=== PATIENT | male | born 1965 | race Caucasian/White ===

== ENCOUNTER → 2018-02-03 | Outpatient (CLI) | payer MEDICARE, OTHER ==
[~2018-02-03] MED LIST: ADDERALL 10 MG10 MG PO; ATENOLOL 50MG T50 M1 PO; COUMADIN 4 MG TA4 M1 PO; HYDROCODON-ACE1 EAC5 PO; MEDROLDOSEPACK PO; NEURONTIN600 MG PO; NORCO 10-325 T1 EACH PO; PAXIL40 MG PO; PERCOCET 10-321 EACH PO; PROAIR HFA8.5 GM IH; SINGULAIR 10 MG10 MG PO; TRAZODONE HCL50 MG PO; XANAX1 MG PO
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
== END ==
LOC: M.PC 02-02 08:40
DX: I25.10 Atherosclerotic heart disease of native coronary artery without angina pectoris (principal); J98.4 Other disorders of lung; G89.29 Other chronic pain; M19.90 Unspecified osteoarthritis, unspecified site; F43.9 Reaction to severe stress, unspecified; J45.909 Unspecified asthma, uncomplicated

== ENCOUNTER → 2018-04-28 | Outpatient (CLI) | payer MEDICARE, OTHER ==
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
== END ==
LOC: M.PC 00:08
DX: M54.5 Low back pain (principal); I25.10 Atherosclerotic heart disease of native coronary artery without angina pectoris; G89.29 Other chronic pain; M54.2 Cervicalgia; M47.896 Other spondylosis, lumbar region; J45.909 Unspecified asthma, uncomplicated; J98.4 Other disorders of lung; M19.90 Unspecified osteoarthritis, unspecified site; F43.10 Post-traumatic stress disorder, unspecified; Z95.0 Presence of cardiac pacemaker; R07.9 Chest pain, unspecified; Z95.2 Presence of prosthetic heart valve

== ENCOUNTER → 2018-07-21 | Outpatient (CLI) | payer MEDICARE, OTHER ==
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
== END ==
LOC: M.PC 04:45
DX: M54.5 Low back pain (principal); M54.2 Cervicalgia; I25.10 Atherosclerotic heart disease of native coronary artery without angina pectoris; J45.909 Unspecified asthma, uncomplicated; M19.90 Unspecified osteoarthritis, unspecified site; J98.4 Other disorders of lung; Z95.0 Presence of cardiac pacemaker; Z79.899 Other long term (current) drug therapy

== ENCOUNTER → 2018-10-13 | Outpatient (CLI) | payer MEDICARE, OTHER ==
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
== END ==
LOC: M.PC 04:36
DX: S32.2XXD Fracture of coccyx, subsequent encounter for fracture with routine healing (principal); M54.5 Low back pain; R07.9 Chest pain, unspecified; M54.2 Cervicalgia; G89.29 Other chronic pain; J45.909 Unspecified asthma, uncomplicated; M19.90 Unspecified osteoarthritis, unspecified site; I25.10 Atherosclerotic heart disease of native coronary artery without angina pectoris; J98.4 Other disorders of lung; F43.10 Post-traumatic stress disorder, unspecified; X58.XXXD Exposure to other specified factors, subsequent encounter; Z95.0 Presence of cardiac pacemaker; Z79.899 Other long term (current) drug therapy; Z95.4 Presence of other heart-valve replacement

== ENCOUNTER → 2019-01-05 | Outpatient (CLI) | payer MEDICARE, OTHER ==
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
== END ==
LOC: M.PC 08:00
DX: M54.5 Low back pain (principal); G89.29 Other chronic pain; J45.909 Unspecified asthma, uncomplicated; J98.4 Other disorders of lung; I25.10 Atherosclerotic heart disease of native coronary artery without angina pectoris; M19.90 Unspecified osteoarthritis, unspecified site; F43.10 Post-traumatic stress disorder, unspecified; W19.XXXA Unspecified fall, initial encounter; Z95.4 Presence of other heart-valve replacement; Z79.899 Other long term (current) drug therapy

== ENCOUNTER → 2019-06-29 | Outpatient (CLI) | payer MEDICARE, OTHER ==
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
== END ==
LOC: M.PC 05:02
DX: Z76.0 Encounter for issue of repeat prescription (principal); I10 Essential (primary) hypertension; J45.909 Unspecified asthma, uncomplicated; M19.90 Unspecified osteoarthritis, unspecified site; F43.10 Post-traumatic stress disorder, unspecified; Z95.2 Presence of prosthetic heart valve; Z95.0 Presence of cardiac pacemaker; Z88.8 Allergy status to other drugs, medicaments and biological substances; Z79.899 Other long term (current) drug therapy; Z79.891 Long term (current) use of opiate analgesic

== ENCOUNTER → 2019-09-21 | Outpatient (CLI) | payer MEDICARE, OTHER ==
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
== END ==
LOC: M.PC 05:23
DX: M19.90 Unspecified osteoarthritis, unspecified site (principal); J98.4 Other disorders of lung; J45.909 Unspecified asthma, uncomplicated; Z95.0 Presence of cardiac pacemaker; F43.10 Post-traumatic stress disorder, unspecified; G89.29 Other chronic pain; M54.9 Dorsalgia, unspecified

== ENCOUNTER → 2019-12-14 | Outpatient (CLI) | payer MEDICARE, OTHER ==
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
== END ==
LOC: M.PC 09:00
DX: G89.29 Other chronic pain (principal); J45.909 Unspecified asthma, uncomplicated; Z95.0 Presence of cardiac pacemaker; Z88.8 Allergy status to other drugs, medicaments and biological substances; Z79.899 Other long term (current) drug therapy

== ENCOUNTER → 2020-03-07 | Outpatient (CLI) | payer MEDICARE, OTHER ==
[~2020-03-07] MED LIST changes: +LIPITOR20 MG PO; +TOPROL XL25 MG PO
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
== END ==
LOC: M.PC 04:53
DX: R07.9 Chest pain, unspecified (principal); M25.559 Pain in unspecified hip; J45.909 Unspecified asthma, uncomplicated; J98.4 Other disorders of lung; F43.9 Reaction to severe stress, unspecified; F11.20 Opioid dependence, uncomplicated; M19.90 Unspecified osteoarthritis, unspecified site; Z95.0 Presence of cardiac pacemaker; Z95.2 Presence of prosthetic heart valve; Z09 Encounter for follow-up examination after completed treatment for conditions other than malignant neoplasm; Z87.81 Personal history of (healed) traumatic fracture; Z88.8 Allergy status to other drugs, medicaments and biological substances; Z79.84 Long term (current) use of oral hypoglycemic drugs; Z79.899 Other long term (current) drug therapy

== ENCOUNTER → 2020-05-30 | Outpatient (CLI) | payer MEDICARE, OTHER ==
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
== END ==
LOC: M.PC 04:38
PROVIDERS: ATTEND Anesthesiology Pain Medicine
DX: I25.10 Atherosclerotic heart disease of native coronary artery without angina pectoris (principal); G89.29 Other chronic pain; J45.909 Unspecified asthma, uncomplicated; J98.4 Other disorders of lung; F43.10 Post-traumatic stress disorder, unspecified; F11.20 Opioid dependence, uncomplicated; M19.90 Unspecified osteoarthritis, unspecified site; Z95.4 Presence of other heart-valve replacement; Z95.0 Presence of cardiac pacemaker; Z91.81 History of falling; Z88.8 Allergy status to other drugs, medicaments and biological substances

== ENCOUNTER → 2020-09-07 | Outpatient (CLI) | payer MEDICARE, OTHER ==
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
== END ==
LOC: M.PC 07:37
PROVIDERS: ATTEND Anesthesiology Pain Medicine
DX: Z76.0 Encounter for issue of repeat prescription (principal); I25.10 Atherosclerotic heart disease of native coronary artery without angina pectoris; G89.29 Other chronic pain; R07.89 Other chest pain; J45.909 Unspecified asthma, uncomplicated; R91.8 Other nonspecific abnormal finding of lung field; F43.12 Post-traumatic stress disorder, chronic; M19.90 Unspecified osteoarthritis, unspecified site; Z95.4 Presence of other heart-valve replacement; Z95.0 Presence of cardiac pacemaker; Z91.81 History of falling; Z88.8 Allergy status to other drugs, medicaments and biological substances; Z79.899 Other long term (current) drug therapy

== ENCOUNTER → 2020-12-26 | Outpatient (CLI) | payer OTHER | LOC: M.PC 10:08 | PROVIDERS: ATTEND Anesthesiology Pain Medicine | DX: I25.10 Atherosclerotic heart disease of native coronary artery without angina pectoris (principal); J45.909 Unspecified asthma, uncomplicated; J98.4 Other disorders of lung; M19.90 Unspecified osteoarthritis, unspecified site; F43.10 Post-traumatic stress disorder, unspecified; Z95.4 Presence of other heart-valve replacement; Z91.81 History of falling; Z88.8 Allergy status to other drugs, medicaments and biological substances; Z79.899 Other long term (current) drug therapy ==

== ENCOUNTER → 2021-03-20 | Outpatient (CLI) | payer OTHER | LOC: M.PC 09:56 | PROVIDERS: ATTEND Anesthesiology Pain Medicine | DX: Z23 Encounter for immunization (principal); I25.10 Atherosclerotic heart disease of native coronary artery without angina pectoris; J45.909 Unspecified asthma, uncomplicated; M19.90 Unspecified osteoarthritis, unspecified site; J98.4 Other disorders of lung; F43.10 Post-traumatic stress disorder, unspecified; G89.29 Other chronic pain; Z95.0 Presence of cardiac pacemaker; Z95.2 Presence of prosthetic heart valve; Z88.8 Allergy status to other drugs, medicaments and biological substances; Z79.899 Other long term (current) drug therapy ==

== ENCOUNTER → 2021-06-12 | Outpatient (CLI) | payer OTHER ==
[~2021-06-12] MED LIST changes: +ZANAFLEX4 M1 PO
== END ==
LOC: M.PC 09:33
PROVIDERS: ATTEND Anesthesiology Pain Medicine
DX: I25.10 Atherosclerotic heart disease of native coronary artery without angina pectoris (principal); J45.909 Unspecified asthma, uncomplicated; J98.4 Other disorders of lung; M19.90 Unspecified osteoarthritis, unspecified site; Z95.2 Presence of prosthetic heart valve; Z79.899 Other long term (current) drug therapy; Z79.891 Long term (current) use of opiate analgesic

== ENCOUNTER → 2021-09-04 | Outpatient (CLI) | payer OTHER ==
[~2021-09-04] MED LIST changes: +BACLOFEN 10MG T10 MG PO
== END ==
LOC: M.PC 09:46
PROVIDERS: ATTEND Anesthesiology Pain Medicine
DX: I25.10 Atherosclerotic heart disease of native coronary artery without angina pectoris (principal); J45.909 Unspecified asthma, uncomplicated; G89.29 Other chronic pain; M19.90 Unspecified osteoarthritis, unspecified site; Z95.4 Presence of other heart-valve replacement; Z95.0 Presence of cardiac pacemaker

== ENCOUNTER → 2021-11-27 | Outpatient (CLI) | payer OTHER | LOC: M.PC 09:37 | PROVIDERS: ATTEND Anesthesiology Pain Medicine | DX: I25.10 Atherosclerotic heart disease of native coronary artery without angina pectoris (principal); J45.909 Unspecified asthma, uncomplicated; J98.4 Other disorders of lung; M19.90 Unspecified osteoarthritis, unspecified site; R07.89 Other chest pain; F43.10 Post-traumatic stress disorder, unspecified; Z95.2 Presence of prosthetic heart valve; Z95.0 Presence of cardiac pacemaker; Z88.8 Allergy status to other drugs, medicaments and biological substances; Z79.01 Long term (current) use of anticoagulants; Z79.899 Other long term (current) drug therapy ==